=== PATIENT | male | born 1985 | race Two or more races ===

== ENCOUNTER 2016-11-24 17:20 | Emergency (ER) | payer SELFPAY ==
[2016-11-24 17:30] VITALS: BP 145/75
[2016-11-24] MEDS ORDERED: DIPHTH,PERTUSS(ACELL),TET TOX 0.5 ML DISP.SYRIN. VAX IM ONE (17:45)
--- NOTE | 2016-11-24 17:56 | PHYS DOC ---
Past Medical History Past Medical History: No Pertinent History Past Surgical History: No Surgical History Smokin Pack Per Day Alcohol Use: Occasionally Drug Use: None Adult General Chief Complaint Chief Complaint: LACERATION/AVULSION HPI HPI Patient is a 31 year old male presents to the emergency department with complaints of a possible patient metal in the right lower extremity. Patient states he was hammering metal when a piece year off and struck him in the leg. Says he has no pain with ambulation. Hemostasis obtained prior to arrival. The since with translation was provided by Padmaja, emergency medicine tree trimming line technician. Review of Systems Review of Systems Constitutional: Denies fever or chills [] Eyes: Denies change in visual acuity, redness, or eye pain [] HENT: Denies nasal congestion or sore throat [] Respiratory: Denies cough or shortness of breath [] Cardiovascular: No additional information not addressed in HPI [] GI: Denies abdominal pain, nausea, vomiting, bloody stools or diarrhea [] : Denies dysuria or hematuria [] Musculoskeletal: Denies back pain or joint pain [] Integument: Laceration right Neurologic: Denies headache, focal weakness or sensory changes [] Endocrine: Denies polyuria or polydipsia [] Current Medications Current Medications Current Medications Medications (Trade) Dose Ordered Sig/Kyle Start Time Stop Time Status Last Admin Dose Admin Diphtheria/ Tetanus/Acell Pertussis (Boostrix) 0.5 ml ONCE ONCE 11/24/16 17:45 11/24/16 17:46 DC 11/24/16 17:56 0.5 ML Lidocaine HCl 20 ml 1X ONCE 11/24/16 18:45 11/24/16 18:46 DC Allergies Allergies Allergies Coded Allergies Type Severity Reaction Last Updated Verified No Known Drug Allergies 11/24/16 No Physical Exam Physical Exam Constitutional: Well developed, well nourished, no acute distress, non-toxic appearance. [] HENT: Normocephalic, atraumatic, bilateral external ears normal, oropharynx moist, no oral exudates, nose normal. [] Eyes: PERRLA, EOMI, conjunctiva normal, no discharge. [] Neck: Normal range of motion, no tenderness, supple, no stridor. [] Cardiovascular:Heart rate regular rhythm, no murmur [] Lungs & Thorax: Bilateral breath sounds clear to auscultation [] Abdomen: Bowel sounds normal, soft, no tenderness, no masses, no pulsatile masses. [] Skin: Warm, dry, no erythema, no rash. [] Back: No tenderness, no CVA tenderness. [] Extremities: Right lower extremity, right hip right ankle exam unremarkable. Right knee, medial and 2 cm distal to the knee, centimeter round puncture. There is no swelling or no ecchymosis. Patient has full range of motion without difficulty. Neurovascular intact distally. Neurologic: Alert and oriented X 3, normal motor function, normal sensory function, no focal deficits noted. [] Psychologic: Affect normal, judgement normal, mood normal. [] Current Patient Data Vital Signs Vital Signs Date Time Temp Pulse Resp B/P (MAP) Pulse Ox O2 Delivery O2 Flow Rate FiO2 11/24/16 17:30 98.2 70 18 98 Room Air 98.2 EKG EKG [] Radiology/Procedures Radiology/Procedures Right knee x-ray, foreign body soft tissue. Suture note: Wound was anesthetized with 1% lidocaine, 2 mL. Wound was copiously irrigated. Explored foreign body which I was unable to remove. Wound was then dressed with a bulky bandage. Course & Med Decision Making Course & Med Decision Making Pertinent Labs and Imaging studies reviewed. (See chart for details) With the patient. I have carefully explored the wound and was unable to remove the foreign body. I've explained to the patient that despite the search the foreign body remained. At this point further surgery were attempts at removal may cause worsening tissue damage and more harm than good. I showed this information with the patient. In the event that there is development of persistent pain, redness or discharge from the injury site he's return to the emergency department. This is been communicating the patient will require follow -up with an orthopedic physician for removal of the foreign body. Patient will be discharged on Augmentin 875 mg 1 by mouth twice a day #20. Tramadol 1 by mouth every 6 hours when necessary for pain. He's follow up with orthopedic physician, call Saturday for an appointment. Patient verbalizes understanding and is in agreement with plan. Dragon Disclaimer Dragon Disclaimer This electronic medical record was generated, in whole or in part, using a voice recognition dictation system. Departure Departure Impression: Primary Impression: Foreign body (FB) in soft tissue Disposition: HOME, SELF-CARE Condition: STABLE Referrals: RUPAL RAYA II, MD Patient Instructions: Ear Foreign Body Additional Instructions: Follow-up with the orthopedic physician, call Saturday for an appointment. Return to the emergency department his symptoms or concerns or worsening of current condition. Scripts Tramadol Hcl (TRAMADOL HCL) 50 Mg Tablet 50 MG PO Q6H Y for PAIN, #15 TAB 0 Refills Prov: LELO PARISH APRN 11/24/16 Amoxicillin/Potassium Clav (AMOX TR-K CLV 875-125 MG TAB) 1 Each Tablet 1 TAB PO BID, #20 TAB Prov: LELO PARISH APRN 11/24/16 LELO PARISH APRN Nov 24, 2016 17:56
[2016-11-24] MEDS ORDERED: LIDOCAINE 2% 20 ML VIAL. IJ ONE (18:45)
[2016-11-24] MEDS ORDERED: AMOX1TAB11 PO (19:10)
[2016-11-24] MEDS ORDERED: TRAM50TA PO (19:10)
--- NOTE | 2016-11-25 10:33 | RAD ---
Right knee, 3 views, 11/24/2016: History: Laceration, possible foreign body No fracture or dislocation is identified. There is mild spurring at the patellofemoral articulation. There is a 13 x 4 mm radiopaque foreign body projected over the soft tissues along the medial aspect of the proximal tibia. There is an overlying radiopaque bandage at this level. Several small phlebolith type densities are noted in the soft tissues more inferiorly in the lower leg. IMPRESSION: 1. Radiopaque foreign body in the soft tissues medially as described above. 2. No acute bony abnormality is detected.
== END 2016-11-24 19:26 | disposition home or self-care (01) ==
LOC: ER 17:20
DX: S80.851A Superficial foreign body, right lower leg, initial encounter (principal); F17.200 Nicotine dependence, unspecified, uncomplicated; W22.8XXA Striking against or struck by other objects, initial encounter; Y93.89 Activity, other specified; Y92.89 Other specified places as the place of occurrence of the external cause; Y99.8 Other external cause status
CPT/HCPCS: 73562; 90471; 90715; 96372; 99284-25; J2001